=== PATIENT | female | born 1980 | race Caucasian/White ===

== ENCOUNTER → 2020-10-02 11:17 | Outpatient (BNVA) | payer SELFPAY | PROVIDERS: Family Provider Family Medicine; PCP Family Medicine; Visit Provider Nurse Practitioner Family | DX: J06.9 Acute upper respiratory infection, unspecified (principal); R43.0 Anosmia; Z20.828 Contact with and (suspected) exposure to other viral communicable diseases | CPT/HCPCS: 87635 ==

== ENCOUNTER → 2021-04-22 16:11 | Outpatient (BNVA) | payer OTHER, MEDICAID, SELFPAY | PROVIDERS: Family Provider Family Medicine; PCP Family Medicine; Visit Provider Obstetrics & Gynecology | DX: N93.9 Abnormal uterine and vaginal bleeding, unspecified (principal); R87.610 Atypical squamous cells of undetermined significance on cytologic smear of cervix (ASC-US); R87.810 Cervical high risk human papillomavirus (HPV) DNA test positive; Z12.4 Encounter for screening for malignant neoplasm of cervix | CPT/HCPCS: 83001; 84146; 84443; 84702; 85025 ==

== ENCOUNTER → 2021-04-23 10:00 | Outpatient (BNVA) | payer OTHER, MEDICAID, SELFPAY | PROVIDERS: Family Provider Family Medicine; PCP Family Medicine; Visit Provider Obstetrics & Gynecology | DX: N94.10 Unspecified dyspareunia (principal) | CPT/HCPCS: 76830 ==

== ENCOUNTER → 2021-05-09 08:01 | Outpatient (BNVA) | payer OTHER, MEDICAID, SELFPAY | PROVIDERS: Family Provider Family Medicine; PCP Family Medicine; Visit Provider Obstetrics & Gynecology | DX: Z12.4 Encounter for screening for malignant neoplasm of cervix (principal); R87.610 Atypical squamous cells of undetermined significance on cytologic smear of cervix (ASC-US); R87.810 Cervical high risk human papillomavirus (HPV) DNA test positive; N91.4 Secondary oligomenorrhea; N94.10 Unspecified dyspareunia | CPT/HCPCS: 88175; 88305 ==

== ENCOUNTER → 2021-08-04 15:11 | Outpatient (BNVA) | payer OTHER, MEDICAID, SELFPAY | PROVIDERS: Family Provider Family Medicine; PCP Family Medicine; Referring Provider Registered Nurse; Visit Provider Podiatrist Foot & Ankle Surgery | DX: M79.672 Pain in left foot (principal); M20.12 Hallux valgus (acquired), left foot | CPT/HCPCS: 73630 ==

== ENCOUNTER 2022-05-22 14:32 | Emergency (ER) | payer MEDICAID, SELFPAY ==
[2022-05-22 14:38] VITALS: BP 121/89; PULSE 87; RESP 16; TEMP 36.7; O2SAT 98; BMI 29.7
--- NOTE | 2022-05-22 14:45 | ECG_ITS ---
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 Measurements Intervals [place] Rate: 84 P: 53 MA: 117 QRS: 70 QRSD: 94 T: 58 QT: 412 QTc: 488 Interpretive Statements SINUS RHYTHM WITH SHORT MA INTERVAL ST DEVIATION AND MODERATE T-WAVE ABNORMALITY, CONSIDER ANTERIOR ISCHEMIA [-0.1+ mV T WAVE IN V3/V4] No previous ECG available for comparison Electronically Signed On 05-22-2022 20:29:23 CDT by Ronnie Dueñas M.D. [email or web address]/[id number] f
[2022-05-22] MEDS: LORazepam 2 mg Tablet PO (15:07)
--- NOTE | 2022-05-22 16:22 | ED_ITS ---
Documented by User: Grayson Brewer DO 05/25/22 06:37 HPI - Chest Pain General: Chief Complaint: Chest Pain Stated Complaint: c/p possible anxiety Time Seen by Provider: 05/22/22 14:36 Source: patient Mode of arrival: EMS Limitations: no limitations History of Present Illness: 42 yo female present to the ER with comp;alitns of chest pian that began after an argumatn with her boyfriend. pain was rather bried and accompanied by dyspnea. She sttes it is fully resolved now. She had a similar episode yesterday its been on and off since yesterday worsening today. She relates it all to the anxiety and stress from a argument with her Luci boyfriend in ill health that he is experiencing. She does smoke she is not diabetic she has a strong family history of heart disease with a sister at coronary artery issues in her 30s. Her father also had coronary artery issues in his 40s. Patient had a hysterectomy at a young age she is not on any hormone replacement therapy. MD complaint: chest pain Onset (ago): minute(s) Timing of current episode: episodic Prior episodes: No Onset: during rest and other (emotional strain) Pain location: left chest Pain radiation: none Severity: mild Quality: aching and heaviness Relieving factors: nothing Exacerbating factors: nothing Associated symptoms: Reports dyspnea and sense of impending doom; Deny abdominal pain, diaphoresis, fever(s), leg edema, nausea, palpitations, syncope or vomiting Treatment prior to arrival: none Review of Systems Const: Denies: fever(s), chills, fatigue, malaise or diaphoresis ENMT: Denies: throat pain, ear or mastoid pain, nasal discharge or nasal congestion Card: Reports: chest pain; Denies: palpitations, irregular heart rhythm, edema or syncope Resp: Reports: dyspnea; Denies: productive cough or non-productive cough GI: Denies: abdominal pain, nausea or vomiting : Denies: flank pain, difficulty voiding, dysuria, urinary frequency or urinary urgency Musc: Denies: neck pain or back pain Skin/Breast: Denies: rash or pruritus PFSH ED PFSH: Surgical History History of bilateral tubal ligation History of tonsillectomy Family History Father Heart disease Family/Other Diabetes Maternal aunt Breast cancer maternal aunt, 40's Grandmother Uterine cancer maternal, states she had cancer all done there , 50's Ovarian cancer maternal, 50's Denies family history of Colon cancer Clotting disorder Hyperlipidemia Anesthesia complication Bleeding disorder Hypertension Thyroid condition Stroke Social History Smoking and tobacco status: current every day smoker cigarettes Packs smoked per day: 2 Alcohol intake: current Alcohol intake frequency: holidays/special occasions only Alcohol type: hard liquor Female Reproductive History: Para: 3 Spontaneous abortions: Yes (1) Physical Exam Const: GENERAL APPEARANCE: cooperative and comfortable ORIENTATION/CONSCIOUSNESS: Yes awake, Yes oriented to person, Yes oriented to place and Yes oriented to time HENMT: COMMON NORMALS: normocephalic, atraumatic and hearing grossly normal bilaterally HEAD & SCALP: normocephalic and atraumatic Neck/C-Spine: COMMON NORMALS: no JVD Resp: COMMON NORMALS: normal respiratory effort, No retractions, No use of accessory muscles and clear to auscultation bilaterally AUSCULTATION: clear to auscultation bilaterally Cardio: COMMON NORMALS: no JVD, regular rate, regular rhythm and No murmurs present (Cardio) RATE: regular rate RHYTHM: regular rhythm GI: COMMON NORMALS: Soft to palpation and No hepatosplenomegaly present AUSCULTATION: Yes normoactive bowel sounds PALPATION: Yes Soft to palpation, No Tenderness to palpation present (GI), No Guarding due to palpation present (GI) and Yes No hepatosplenomegaly present Extremity: COMMON NORMALS: normal to inspection, capillary refill normal, no clubbing, cyanosis or edema, no calf tenderness and no pedal edema Neuro: SENSORIUM/ORIENTATION: Yes oriented to person, Yes oriented to place and Yes oriented to time Skin: COMMON NORMALS: no rashes or lesions noted GENERAL SKIN EXAM: no rashes or lesions noted Course Vital Signs: Vital signs: Vital Signs Temperature 98.1 F 05/22/22 14:38 Pulse Rate 65 05/22/22 18:20 Respiratory Rate 15 05/22/22 18:20 Blood Pressure 121/89 05/22/22 18:20 Pulse Oximetry 95 05/22/22 18:20 MDM - Chest Pain Medical Decision Making Patient has risk factors particularly she has siblings who have had coronary artery disease including a sister who had coronary artery disease in her 30s. Female Yosvany are pending. Care signed out to Dr. Rios at change of shift. See final notes for diagnosis and disposition. Patient presents here with chest pains atypical in nature. Patient's heart enzymes here are normal she has no signs of acute coronary syndrome. Patient is stable for discharge she is to follow-up PCP and return if worsening. Medical Records I reviewed the patient's medical records. Lab Data I reviewed the patient's lab results. : 05/22/22 17:55 05/22/22 17:55 Radiology Impressions Chest X-Ray 05/22/22 16:50 IMPRESSION: No acute cardiopulmonary abnormality. Laboratory Results WBC 9.9 10^3/uL (4.0-10.0) 05/22/22 17:55 RBC 5.10 10^6/uL (4.1-5.3) 05/22/22 17:55 Hgb 12.0 g/dL (11.5-15.3) 05/22/22 17:55 Hct 39.1 % (37.0-47.0) 05/22/22 17:55 MCV 76.7 fl (81-99) L 05/22/22 17:55 MCH 23.5 pg (28.0-34.0) L 05/22/22 17:55 MCHC 30.7 g/dL (30.0-36.0) 05/22/22 17:55 RDW 14.2 % (12.1-15.1) 05/22/22 17:55 Plt Count 494 10^3/cmm (130-400) H 05/22/22 17:55 MPV 10.1 fL (7.4-10.4) 05/22/22 17:55 Neut % (Auto) 69.0 % 05/22/22 17:55 Lymph % (Auto) 23.2 % 05/22/22 17:55 [place] % (Auto) 5.0 % 05/22/22 17:55 Eos % (Auto) 1.9 % 05/22/22 17:55 Baso % (Auto) 0.7 % 05/22/22 17:55 Neut # (Auto) 6.81 10^3/uL (1.8-7.7) 05/22/22 17:55 Lymph # (Auto) 2.3 10^3/uL (0.8-4.8) 05/22/22 17:55 [place] # (Auto) 0.5 10^3/uL (0.2-0.9) 05/22/22 17:55 Eos # (Auto) 0.2 10^3/uL (0.0-0.8) 05/22/22 17:55 Baso # (Auto) 0.1 10^3/uL (0.0-0.1) 05/22/22 17:55 Nucleated RBC % (auto) 0 % 05/22/22 17:55 Nucleated RBCs # 0.0 /100WBC 05/22/22 17:55 Sodium 137 mmol/L (136-145) 05/22/22 17:55 Potassium 3.5 mmol/L (3.5-5.1) 05/22/22 17:55 Chloride 100 mmol/L (98-107) 05/22/22 17:55 Carbon Dioxide 23 mmol/L (22-29) 05/22/22 17:55 Anion Gap 17.5 (5-19) 05/22/22 17:55 BUN 10 mg/dL (6-20) 05/22/22 17:55 Creatinine 0.6 mg/dL (0.5-0.9) 05/22/22 17:55 GFR Calculation 109.1 mL/min (90-130) 05/22/22 17:55 Glucose 103 mg/dL (65-115) 05/22/22 17:55 Calculated Osmolality 283 mOsm/kg (285-295) L 05/22/22 17:55 Calcium 9.3 mg/dL (8.5-10.5) 05/22/22 17:55 Total Bilirubin 0.6 mg/dL (0.15-1.2) 05/22/22 17:55 AST 19 U/L (0-32) 05/22/22 17:55 ALT 23 U/L (0-33) 05/22/22 17:55 Alkaline Phosphatase 102 IU/L (35-105) 05/22/22 17:55 Troponin T Baseline 6 ng/L (0-10) 05/22/22 16:00 Troponin T 120 Minute 6.40 ng/L (0-10) 05/22/22 17:55 Delta Troponin T 0.40 ABS# (0-10) 05/22/22 17:55 Total Protein 6.5 g/dL (6.6-8.7) L 05/22/22 17:55 Albumin 4.2 g/dL (3.5-5.2) 05/22/22 17:55 Globulin 2.3 g/dL (1.3-4.6) 05/22/22 17:55 Discharge Plan Discharge Patient Disposition: Home Clinical Impression: Chest pain Condition: Stable Prescriptions: No Action pseudoephedrine HCl [Sudafed] 30 mg tablet 30 mg PO DAILY 0RF cetirizine 10 mg tablet 10 mg PO ONCE 0RF tizanidine 2 mg tablet 2 mg PO DAILY 0RF loratadine 10 mg tablet 10 mg PO DAILY 0RF amoxicillin-pot clavulanate 875-125 mg tablet 1 tab PO BID 0RF Tylenol Extra Strength 500 mg Capsule 500 mg PO Q6H PRN (Reason: Pain) 0RF Discharge Orders: Discharge ED (Routine); Ordered 05/22/22 Ordered By: Varinder Rios Referrals: Tootie Garcia DO [Primary Care Provider] - 1-3 days Discharge Diet: Advance as tolerated Discharge Activity: Resume usual activity Patient Instructions: Chest Pain (ED) Coding Level of Care Code ED Personnel Clerks Supervisor for Chg Fwd Exam Comprehensive Documented by User: Varinder Rios MD 05/22/22 19:05 HPI - Chest Pain General: Chief Complaint: Chest Pain Stated Complaint: c/p possible anxiety Time Seen by Provider: 05/22/22 14:36 [facility] ED PFSH: Surgical History History of bilateral tubal ligation History of tonsillectomy Family History Father Heart disease Family/Other Diabetes Maternal aunt Breast cancer maternal aunt, 40's Grandmother Uterine cancer maternal, states she had cancer all done there , 50's Ovarian cancer maternal, 50's Denies family history of Colon cancer Clotting disorder Hyperlipidemia Anesthesia complication Bleeding disorder Hypertension Thyroid condition Stroke Social History Smoking and tobacco status: current every day smoker cigarettes Packs smoked per day: 2 Alcohol intake: current Alcohol intake frequency: holidays/special occasions only Alcohol type: hard liquor Course Vital Signs: Vital signs: Vital Signs Temperature 98.1 F 05/22/22 14:38 Pulse Rate 65 05/22/22 18:20 Respiratory Rate 15 05/22/22 18:20 Blood Pressure 121/89 05/22/22 18:20 Pulse Oximetry 95 05/22/22 18:20 MDM - Chest Pain Medical Decision Making Patient presents here with chest pains atypical in nature. Patient's heart enzymes here are normal she has no signs of acute coronary syndrome. Patient is stable for discharge she is to follow-up PCP and return if worsening. Lab Data : 05/22/22 17:55 05/22/22 17:55 Radiology Impressions Chest X-Ray 05/22/22 16:50 IMPRESSION: No acute cardiopulmonary abnormality. Laboratory Results WBC 9.9 10^3/uL (4.0-10.0) 05/22/22 17:55 RBC 5.10 10^6/uL (4.1-5.3) 05/22/22 17:55 Hgb 12.0 g/dL (11.5-15.3) 05/22/22 17:55 Hct 39.1 % (37.0-47.0) 05/22/22 17:55 MCV 76.7 fl (81-99) L 05/22/22 17:55 MCH 23.5 pg (28.0-34.0) L 05/22/22 17:55 MCHC 30.7 g/dL (30.0-36.0) 05/22/22 17:55 RDW 14.2 % (12.1-15.1) 05/22/22 17:55 Plt Count 494 10^3/cmm (130-400) H 05/22/22 17:55 MPV 10.1 fL (7.4-10.4) 05/22/22 17:55 Neut % (Auto) 69.0 % 05/22/22 17:55 Lymph % (Auto) 23.2 % 05/22/22 17:55 [place] % (Auto) 5.0 % 05/22/22 17:55 Eos % (Auto) 1.9 % 05/22/22 17:55 Baso % (Auto) 0.7 % 05/22/22 17:55 Neut # (Auto) 6.81 10^3/uL (1.8-7.7) 05/22/22 17:55 Lymph # (Auto) 2.3 10^3/uL (0.8-4.8) 05/22/22 17:55 [place] # (Auto) 0.5 10^3/uL (0.2-0.9) 05/22/22 17:55 Eos # (Auto) 0.2 10^3/uL (0.0-0.8) 05/22/22 17:55 Baso # (Auto) 0.1 10^3/uL (0.0-0.1) 05/22/22 17:55 Nucleated RBC % (auto) 0 % 05/22/22 17:55 Nucleated RBCs # 0.0 /100WBC 05/22/22 17:55 Sodium 137 mmol/L (136-145) 05/22/22 17:55 Potassium 3.5 mmol/L (3.5-5.1) 05/22/22 17:55 Chloride 100 mmol/L (98-107) 05/22/22 17:55 Carbon Dioxide 23 mmol/L (22-29) 05/22/22 17:55 Anion Gap 17.5 (5-19) 05/22/22 17:55 BUN 10 mg/dL (6-20) 05/22/22 17:55 Creatinine 0.6 mg/dL (0.5-0.9) 05/22/22 17:55 GFR Calculation 109.1 mL/min (90-130) 05/22/22 17:55 Glucose 103 mg/dL (65-115) 05/22/22 17:55 Calculated Osmolality 283 mOsm/kg (285-295) L 05/22/22 17:55 Calcium 9.3 mg/dL (8.5-10.5) 05/22/22 17:55 Total Bilirubin 0.6 mg/dL (0.15-1.2) 05/22/22 17:55 AST 19 U/L (0-32) 05/22/22 17:55 ALT 23 U/L (0-33) 05/22/22 17:55 Alkaline Phosphatase 102 IU/L (35-105) 05/22/22 17:55 Troponin T Baseline 6 ng/L (0-10) 05/22/22 16:00 Troponin T 120 Minute 6.40 ng/L (0-10) 05/22/22 17:55 Delta Troponin T 0.40 ABS# (0-10) 05/22/22 17:55 Total Protein 6.5 g/dL (6.6-8.7) L 05/22/22 17:55 Albumin 4.2 g/dL (3.5-5.2) 05/22/22 17:55 Globulin 2.3 g/dL (1.3-4.6) 05/22/22 17:55 Discharge Plan Discharge Patient Disposition: Home Clinical Impression: Chest pain Condition: Stable Prescriptions: No Action pseudoephedrine HCl [Sudafed] 30 mg tablet 30 mg PO DAILY 0RF cetirizine 10 mg tablet 10 mg PO ONCE 0RF tizanidine 2 mg tablet 2 mg PO DAILY 0RF loratadine 10 mg tablet 10 mg PO DAILY 0RF amoxicillin-pot clavulanate 875-125 mg tablet 1 tab PO BID 0RF Tylenol Extra Strength 500 mg Capsule 500 mg PO Q6H PRN (Reason: Pain) 0RF Discharge Orders: Discharge ED (Routine); Ordered 05/22/22 Ordered By: Varinder Rios Referrals: Tootie Garcia DO [Primary Care Provider] - 1-3 days Discharge Diet: Advance as tolerated Discharge Activity: Resume usual activity Patient Instructions: Chest Pain (ED) Coding Level of Care Code ED Personnel Clerks Supervisor for Mariog Fwd Exam Comprehensive
--- NOTE | 2022-05-22 16:45 | ECG_ITS ---
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 Measurements Intervals [place] Rate: 84 P: 52 PA: 119 QRS: 63 QRSD: 89 T: 44 QT: 403 QTc: 479 Interpretive Statements SINUS RHYTHM WITH SHORT PA INTERVAL NONSPECIFIC ST & T-WAVE ABNORMALITY Compared to ECG 05/22/2022 14:39:53 Possible ischemia no longer present T-wave abnormality still present Electronically Signed On 05-22-2022 20:31:16 CDT by Ronnie Dueñas M.D. [email or web address]/[id number] f
[2022-05-22 16:48] LABS: Troponin(5th) Baseline 6 ng/L (0-10)
--- NOTE | 2022-05-22 16:50 | XRR_ITS ---
PROCEDURE INFORMATION: Exam: XR Chest Exam date and time: 05/22/2022 4:55 PM Age: 42 years old Clinical indication: Cough and dyspnea; Additional info: Dyspnea/cough TECHNIQUE: Imaging protocol: Radiologic exam of the chest. Views: 1 view. COMPARISON: No relevant prior studies available. FINDINGS: Lungs: The lungs are clear. Pleural spaces: Unremarkable. No pleural effusion. No pneumothorax. Heart/Mediastinum: Unremarkable. No cardiomegaly. Bones/joints: Unremarkable. XR/XR chest 1V portable [id number] IMPRESSION: No acute cardiopulmonary abnormality.
[2022-05-22 18:05] LABS: Basophils # 0.1 10^3/uL (0.0-0.1); Basophils % 0.7 %; Eosinophils # 0.2 10^3/uL (0.0-0.8); Eosinophils % 1.9 %; Hematocrit 39.1 % (37.0-47.0); Lymphocytes # 2.3 10^3/uL (0.8-4.8); Lymphocytes % 23.2 %; Mean Corpuscular HGB Conc 30.7 g/dL (30.0-36.0); Mean Corpuscular Hemoglobin 23.5 pg (28.0-34.0); Mean Corpuscular Volume 76.7 fl (81-99); Mean Platelet Volume 10.1 fL (7.4-10.4); Monocytes # 0.5 10^3/uL (0.2-0.9); Neutrophils # 6.81 10^3/uL (1.8-7.7); Nucleated Red Blood Cells % 0 %; Platelet Count 494 10^3/cmm (130-400); Red Cell Distribution Width 14.2 % (12.1-15.1); White Blood Count 9.9 10^3/uL (4.0-10.0)
[2022-05-22 18:20] VITALS: BP 121/89; PULSE 65; RESP 15; O2SAT 95
[2022-05-22 18:35] LABS: Alanine Aminotransferase 23 U/L (0-33); Albumin Level 4.2 g/dL (3.5-5.2); Alkaline Phosphatase 102 IU/L (35-105); Anion Gap 17.5 (5-19); Aspartate Amino Transferase 19 U/L (0-32); Blood Urea Nitrogen 10 mg/dL (6-20); Calcium 9.3 mg/dL (8.5-10.5); Carbon Dioxide 23 mmol/L (22-29); Chloride 100 mmol/L (98-107); Globulin 2.3 g/dL (1.3-4.6); Glomerular Filtration Rate 109.1 mL/min (90-130); Glucose 103 mg/dL (65-115); Osmolality Calculated 283 mOsm/kg (285-295); Potassium 3.5 mmol/L (3.5-5.1); Sodium 137 mmol/L (136-145); Total Bilirubin 0.6 mg/dL (0.15-1.2); Total Protein 6.5 g/dL (6.6-8.7)
== END 2022-05-22 19:18 | disposition home or self-care (01) ==
PROVIDERS: Family Medicine; Emergency Provider Emergency Medicine; PCP Family Medicine
DX: R07.9 Chest pain, unspecified (principal); F17.210 Nicotine dependence, cigarettes, uncomplicated
CPT/HCPCS: 71045; 80053; 84484; 85025; 93005; 99285

== ENCOUNTER → 2024-04-14 08:48 | Outpatient (BNVA) | payer MEDICAID, SELFPAY | PROVIDERS: PCP Family Medicine; Visit Provider Obstetrics & Gynecology | DX: Z12.4 Encounter for screening for malignant neoplasm of cervix (principal) | CPT/HCPCS: 87624 ==

== ENCOUNTER → 2024-05-08 07:58 | Outpatient (BNVA) | payer MEDICAID, SELFPAY | PROVIDERS: PCP Family Medicine; Visit Provider Obstetrics & Gynecology | DX: R10.2 Pelvic and perineal pain (principal); N83.291 Other ovarian cyst, right side | CPT/HCPCS: 76830 ==

== ENCOUNTER 2025-02-22 14:12 | Inpatient (IN) | payer MEDICAID, SELFPAY ==
[2025-02-22 14:13] VITALS: BP 166/111; PULSE 98; RESP 22; TEMP 36.7; O2SAT 99; BMI 26.5
--- NOTE | 2025-02-22 14:18 | ECG_ITS ---
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 Measurements Intervals [place] Rate: 104 P: 68 DC: 126 QRS: 56 QRSD: 78 T: 1 QT: 342 QTc: 451 Interpretive Statements SINUS TACHYCARDIA POSSIBLE LEFT ATRIAL ENLARGEMENT [-0.1mV P-WAVE IN V1/V2] NONSPECIFIC ST & T-WAVE ABNORMALITY ABNORMAL RHYTHM ECG Compared to ECG 05/22/2022 17:00:59 Sinus rhythm no longer present Short DC interval no longer present T-wave abnormality still present Electronically Signed On 02-23-2025 10:35:47 CDT by Reggie Perez M.D. [id number]
--- NOTE | 2025-02-22 14:21 | ED_ITS ---
HPI - Anxiety 2 General: Chief Complaint: Anxiety Stated Complaint: mhe Time Seen by Provider: 02/22/25 14:18 History of Present Illness: 44-year-old woman who presents the emerg ency room with anxiety and depression symptoms. On presentation here she appears somewhat manic and is talking with pressured speech. She says she was sent over for an evaluation. She says she is not homicidal or not suicidal that her and her son are just both depressed. She gone to [facility] [place] for an evaluation and they told her if she came here she would be evaluated by a psychiatrist. However affidavits were sent in apparently she had been sent for admission as they were concerned for her wellbeing and wellbeing of others. She had made statements about how she did not want to be here on earth but she would not kill her self because of her kids. But then she went on to say that she would kill a man. She would not be specific about who. Related Data Home Medications ?Medication ?Instructions ?Recorded ?Confirmed acetaminophen 500 mg capsule 500 mg PO Q6H PRN Pain 02/22/25 Allergies Allergy/AdvReac Type Severity Reaction Status Date / Time No Known Allergies Allergy Verified 04/14/24 07:29 Review of Systems 2 Narrative: Constitutional symptoms: Negative except as documented in HPI. Skin symptoms: Negative except as documented in HPI. Eye symptoms: Negative except as documented in HPI. ENMT symptoms: Negative except as documented in HPI. Respiratory symptoms: Negative except as documented in HPI. Cardiovascular symptoms: Negative except as documented in HPI. Gastrointestinal symptoms: Negative except as documented in HPI. Genitourinary symptoms: Negative except as documented in HPI. Musculoskeletal symptoms: Negative except as documented in HPI. Neurologic symptoms: Negative except as documented in HPI. Psychiatric symptoms: Negative except as documented in HPI. Endocrine symptoms: Negative except as documented in HPI. PFSH ED 2 PFSH: Surgical History History of bilateral tubal ligation History of tonsillectomy Family History Father Heart disease Family/Other Diabetes Maternal aunt Breast cancer maternal aunt, 40's Grandmother Uterine cancer maternal, states she had cancer all done there , 50's Ovarian cancer maternal, 50's Denies family history of Colon cancer Clotting disorder Hyperlipidemia Anesthesia complication Bleeding disorder Hypertension Thyroid condition Stroke Social History Smoking and tobacco/nicotine status: current every day tobacco/nicotine user cigarettes Packs smoked per day: 2 Alcohol intake: current Alcohol intake frequency: holidays/special occasions only Alcohol type: hard liquor Substance/Drug Use: current Substance/Drug use frequency: daily Female Reproductive History: Para: 3 Spontaneous abortions: Yes (1) Physical Exam 2 Narrative: EXAM NARRATIVE: General: Alert. no acute distress Skin: Warm, dry Head: Normocephalic, atraumatic. Neck: Supple, trachea midline. Eye: Extraocular movements are intact. Ears, nose, mouth and throat: Oral mucosa moist. Cardiovascular: Regular rate and rhythm, Normal peripheral perfusion. Respiratory: Lungs are clear to auscultation, respirations are non-labored, breath sounds are equal, Symmetrical chest wall expansion. Gastrointestinal: Soft, Nontender, Non distended, Normal bowel sounds. Musculoskeletal: Normal ROM, no deformity. Neurological: Not Alert and oriented to person, place, time, and situation, No focal neurological deficit observed. Psychiatric: Pressured speech. Manic appearing. Currently denies suicidal or homicidal ideation Course 2 Vital Signs: Vital signs: Vital Signs Temperature 98.0 F 02/22/25 14:13 Pulse Rate 98 02/22/25 14:13 Respiratory Rate 22 H 02/22/25 14:13 Blood Pressure 166/111 02/22/25 14:13 Pulse Oximetry 99 02/22/25 14:13 Oxygen Delivery Me thod Room Air 02/22/25 14:13 MDM - Anxiety Medical Decision Making Differential diagnosis: Patient with reported homicidal thoughts and manic type behavior concerns for infection, alcohol intoxication, cardiac issues or other medical problems prior to psychiatric admission. Workup: labwork, ekg ordered to evaluate the pathologies and to clear the patient medically prior to psychiatric admission EKG: Time 1434. Rate 104. Sinus tachycardia, No ST-T changes, no ectopy, normal UT & QRS intervals, This was reviewed and interpreted by myself the ER physician at 1438. Lab Review: Laboratory results were reviewed and interpreted by myself the emergency room physician. - Medically cleared. - EKG shows no ischemic changes. - Blood alcohol level is negative, -Tylenol and salicylate levels are negative. - No anemia. - BUN and creatinine are within normal limits. Drug screen and urinalysis pending at time of admission. Consultation: I spoke with Dr. Ragland who feels the patient does need to be placed on 96-hour hold admitted. He is excepting the patient to the Neuropsych Unit. Assessment and plan: Homicidal ideations Depression Anxiety ? Patient became quite agitated when she was told she had to stay. Ativan and Geodon administered. -Admission to neuropsychiatric unit for continued evaluation and treatment. - All lab work was reviewed and interpreted personally by myself, the ER physician - Evaluation and treatment of this problem were appropriate in the emergency setting Lab Data 02/22/25 15:51 02/22/25 15:51 Laboratory Results WBC 10.97 10^3/uL (3.29-11.43) 02/22/25 15:51 RBC 5.35 10^6/uL (3.85-5.65) 02/22/25 15:51 Hgb 13.70 g/dL (11.27-16.99) 02/22/25 15:51 Hct 44.4 % (36-47) 02/22/25 15:51 MCV 83.0 fl (85-98) L 02/22/25 15:51 MCH 25.6 pg (27-33) L 02/22/25 15:51 MCHC 30.9 g/dL (30-55) 02/22/25 15:51 RDW 14.1 % (12.1-15.1) 02/22/25 15:51 Plt Count 432 10^3/cmm (157-399) H 02/22/25 15:51 MPV 8.8 fL (7.4-10.4) 02/22/25 15:51 Neut % (Auto) 64.1 % 02/22/25 15:51 Lymph % (Auto) 27.8 % 02/22/25 15:51 [place] % (Auto) 5.7 % 02/22/25 15:51 Eos % (Auto) 1.5 % 02/22/25 15:51 Baso % (Auto) 0.6 % 02/22/25 15:51 Neut # (Auto) 7.03 10^3/uL (1.8-7.7) 02/22/25 15:51 Lymph # (Auto) 3.1 10^3/uL (0.8-4.8) 02/22/25 15:51 [place] # (Auto) 0.6 10^3/uL (0.2-0.9) 02/22/25 15:51 Eos # (Auto) 0.2 10^3/uL (0.0-0.8) 02/22/25 15:51 Baso # (Auto) 0.1 10^3/uL (0.0-0.1) 02/22/25 15:51 Nucleated RBC % (auto) 0 % 02/22/25 15:51 Nucleated RBCs # 0.0 /100WBC 02/22/25 15:51 Sodium 134 mmol/L (136-145) L 02/22/25 15:51 Potassium 3.6 mmol/L (3.5-5.1) 02/22/25 15:51 Chloride 100 mmol/L (98-107) 02/22/25 15:51 Carbon Dioxide 21 mmol/L (22-29) L 02/22/25 15:51 Anion Gap 16.6 (5-19) 02/22/25 15:51 BUN 6 mg/dL (6-20) 02/22/25 15:51 Creatinine 0.7 mg/dL (0.5-0.9) 02/22/25 15:51 GFR Calculation 90.5 mL/min (90-130) 02/22/25 15:51 Glucose 121 mg/dL (65-115) H 02/22/25 15:51 Calculated Osmolality 277 mOsm/kg (285-295) L 02/22/25 15:51 Calcium 9.4 mg/dL (8.5-10.5) 02/22/25 15:51 Total Bilirubin 0.5 mg/dL (0.15-1.2) 02/22/25 15:51 AST 18 U/L (0-32) 02/22/25 15:51 ALT 13 U/L (0-33) 02/22/25 15:51 Alkaline Phosphatase 113 U/L (35-105) H 02/22/25 15:51 Total Protein 7.2 g/dL (6.6-8.7) 02/22/25 15:51 Albumin 4.1 g/dL (3.5-5.2) 02/22/25 15:51 Globulin 3.1 g/dL (1.3-4.6) 02/22/25 15:51 TSH 0.71 uIU/mL (0.27-4.20) 02/22/25 15:51 Salicylates < 0.3 mg/dL (3-10) L 02/22/25 15:51 Acetaminophen < 5.0 ug/mL (10-30) L 02/22/25 15:51 Ethyl Alcohol < 10 mg/dL (0-10) 02/22/25 15:51 No radiology studies performed this visit Discharge Plan Discharge Patient Disposition: Admitted As Inpatient Clinical Impression: Acute anxiety, Depression, Homicidal ideations Condition: Stable Discharge Diet: Usual diet Discharge Activity: Increase activity as tolerated Coding Level of Care Code ED Lab Animal Technologist for Jazmín Ferrera
[2025-02-22 15:58] LABS: Basophils # 0.1 10^3/uL (0.0-0.1); Basophils % 0.6 %; Eosinophils # 0.2 10^3/uL (0.0-0.8); Eosinophils % 1.5 %; Hematocrit 44.4 % (36-47); Lymphocytes # 3.1 10^3/uL (0.8-4.8); Lymphocytes % 27.8 %; Mean Corpuscular HGB Conc 30.9 g/dL (30-55); Mean Corpuscular Hemoglobin 25.6 pg (27-33); Mean Platelet Volume 8.8 fL (7.4-10.4); Monocytes # 0.6 10^3/uL (0.2-0.9); Monocytes % 5.7 %; Neutrophils # 7.03 10^3/uL (1.8-7.7); Neutrophils % 64.1 %; Nucleated Red Blood Cells % 0 %; Platelet Count 432 10^3/cmm (157-399); Red Blood Count 5.35 10^6/uL (3.85-5.65); Red Cell Distribution Width 14.1 % (12.1-15.1); White Blood Count 10.97 10^3/uL (3.29-11.43)
--- NOTE | 2025-02-22 16:04 | PC.NURSE ---
96 hour hold rights read and reviewed with patient. Patient stated I am very upset that you all put me on a hold. I went to [facility] for help and now i am put on a hold? I cant stay here. I have no one to get my kids from school. I am going to lose my house, my job, and my kids. This nurse did explain the 96 hour hold to patient and instructed patient that we will make sure the patients children are safe. Copy of rights given to patient.
--- NOTE | 2025-02-22 16:06 | PC.NURSE ---
MOTHER, RYAN, CALLED AND WANTED TO SPEAK WITH PATIENT. PATIENT GAVE VERBAL CONSENT TO SPEAK TO MOTHER. MOTHER STATES THAT PATIENT CHILDREN ARE WITH ELIESER HER BOYFRIEND'S DAUGHTER.
--- NOTE | 2025-02-22 16:16 | PC.NURSE ---
PT CONCERNED THAT HER CHILDREN WOULD NOT HAVE ANYONE TO PICK THEM UP FROM SCHOOL TODAY. PATIENT GAVE VERBAL CONSENT TO CALL THE SCHOOL TO BE PUT ON THE BUS AND BE DROPPED OFF WITH AUNT ELIESER. THIS NURSE CONTACTED [facility], [facility] VERBALIZED UNDERSTANDING. MOTHER OF PATIENT CALLED, VERBALIZED THAT CHILDREN WERE WITH ELIESER. PATIENT MADE AWARE.
[2025-02-22 16:25] LABS: Acetaminophen < 5.0 ug/mL (10-30); Alanine Aminotransferase 13 U/L (0-33); Albumin Level 4.1 g/dL (3.5-5.2); Alcohol Level < 10 mg/dL (0-10); Alkaline Phosphatase 113 U/L (35-105); Anion Gap 16.6 (5-19); Aspartate Amino Transferase 18 U/L (0-32); Blood Urea Nitrogen 6 mg/dL (6-20); Calcium 9.4 mg/dL (8.5-10.5); Carbon Dioxide 21 mmol/L (22-29); Chloride 100 mmol/L (98-107); Globulin 3.1 g/dL (1.3-4.6); Glomerular Filtration Rate 90.5 mL/min (90-130); Glucose 121 mg/dL (65-115); Osmolality Calculated 277 mOsm/kg (285-295); Potassium 3.6 mmol/L (3.5-5.1); Salicylate < 0.3 mg/dL (3-10); Sodium 134 mmol/L (136-145); Thyroid Stimulating Hormone 0.71 uIU/mL (0.27-4.20); Total Bilirubin 0.5 mg/dL (0.15-1.2); Total Protein 7.2 g/dL (6.6-8.7)
[2025-02-22 17:05] LABS: Bilirubin Urine Negative (Negative); Blood Urine Negative (Negative); Glucose Urine UA Negative (Normal); Ketones Urine Negative (Negative); Leukocyte Esterase Urine Negative (Negative); Nitrate Urine Negative (Negative); Protein Urine Negative (Negative); Specific Gravity, Urine 1.009 (1.005-1.030); Urine Appearance Clear (CLEAR); Urine Color Yellow (Yellow); Urobilinogen Urine 0.2 mg/dL (Negative); pH Urine 6.5 (5-7)
[2025-02-22 17:09] LABS: Add Urine Microscopic? YES; Bacteria Urine Trace /hpf; Hyaline Casts Urine 0-4 /lpf; RBC Urine 0-2 /hpf (0-2)
[2025-02-22 17:15] LABS: Amphetamines Screen Urine Positive (Negative); Barbiturates Screen Urine Negative (Negative); Benzodiazepines Screen Urine Negative (Negative); Cocaine Screen Urine Negative (Negative); Opiate Screen Urine Negative (Negative); PCP Screen Urine Negative (Negative); THC Screen Urine Positive (Negative)
[2025-02-22 17:20] LABS: Add Urine Culture? No
[2025-02-22 18:15] VITALS: BP 153/98; PULSE 91; O2SAT 99
[2025-02-22 18:24] VITALS: BP 176/99; PULSE 97; TEMP 36.4; O2SAT 99
--- NOTE | 2025-02-22 19:34 | PC.ADMIT ---
[address] Admission Note:Pt states that she went to [facility] to see if she could get some help because she is having some struggles right now. She states that she was talking with a lady a made a comment about wanting to stab someone in the face when she gets upset. She states that she was not literall about it at all and there was no one person she even wanted to harm. She states that she is even more stressed now because she was unable to pick her children up and she is supposed to be at work at 1030 in the morning and she is really in need of those hours. She does become tearful at times while talking. States that she just has a lot going on and is feeling pretty stressed, but this isn't what she wanted. Pt was positive for THC and Amphetamines in ER. Pt admits to daily THC use, but did not admit to the amphetamine. BP are elevated since arriving to the unit. Pt does report having alpha gal. Pt was coming out of supervised use of bathroom when she handed me a vape. As we dressed pt out and had her remove bra another vape fell out. She willing handed these over with no issues. Reminded pt that we do have nicotine supplements. She verbalized understanding. She is more calm and cooperative and is trying to be positive as she waits to see the provider. The patient,Radha Serrato,44 y/o, was given written information regarding hospital policies, unit procedures and contact persons. Patient's smoking status: current every day smoker. Vital Signs - 8 hr 02/22/25 14:13 02/22/25 18:15 02/22/25 18:24 Temperature 98.0 F 97.5 F L Pulse Rate 98 91 97 Respiratory Rate 22 H Blood Pressure 166/111 153/98 176/99 Pulse Oximetry 99 99 99 Oxygen Delivery Method Room Air Room Air 02/22/25 18:26 Temperature Pulse Rate Respiratory Rate Blood Pressure Pulse Oximetry Oxygen Delivery Method Room Air
[2025-02-22 20:03] VITALS: BP 132/76; PULSE 91; RESP 16; TEMP 36.7; O2SAT 98
[2025-02-23] MEDS: nicotine 4 mg lozenge MUCOUS MEM ×8 (03:27→22:34)
[2025-02-23 06:00] VITALS: BP 141/89; PULSE 95; RESP 16; TEMP 37.1; O2SAT 95
[2025-02-23 14:00] VITALS: BP 155/102; PULSE 88; RESP 18; TEMP 36.6; O2SAT 97
--- NOTE | 2025-02-23 14:15 | PC.OT ---
ATTEMPTED OT EVALUATION AT 10:56 WITH PT DECLINING; WILL ATTEMPT AGAIN AT LATER TIME.
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
[2025-02-23 20:21] VITALS: BP 149/82; PULSE 79; RESP 17; TEMP 36.7; O2SAT 99
[2025-02-23] MEDS: hyDROXYzine 25 mg Capsule 50 MG PO (20:41)
[2025-02-23] MEDS: trazodone 50 mg Tablet PO (20:41)
[2025-02-24 06:00] VITALS: BP 124/86; PULSE 78; RESP 16; TEMP 37.1; O2SAT 96
[2025-02-24] MEDS: nicotine 4 mg lozenge MUCOUS MEM ×7 (09:00→22:33)
--- NOTE | 2025-02-24 13:17 | P.NPUPN_ITS ---
Subjective NPU 2 Subjective: Patient presented today reporting that she is doing fine. She reports to being hearing away from her kids is difficult and she is wanting to get home sooner rather than later. We continued to discuss concerns about the behaviors she had leading to the hospitalization and we had a long discussion about things that she may have said in her tendency to speak very openly about things in a way that can come across offputting and concerning. She continued to report a desire to not be on medication. Mental Status Exam 2 MSE Comments: This a well-nourished, well-developed white female in hospital scrubs with limited hygiene/grooming but appropriate eye contact. Absent dentition. No abnormal movements except for mild psychomotor agitation. Mostly cooperative with exam and in mild distress. Speech was slightly increased rate and volume. Mood described as feeling significantly better, affect congruent and less irritable. Thought process organized. Thought content: Patient denied suicidality on admission had endorsed homicidal ideation, there were no delusions reported noted. No auditory or visual hallucinations reported. Stressors include a misunderstanding with a lady, which led to being in the hospital. Additionally, the patient's son got in trouble for missing school, and the school suggested [facility] Counseling ([facility]) Attention and concentration are mostly intact and memory is appearing mostly reliable but none were formally tested. She is alert and oriented ?3. Insight, judgment and impulse control are impaired. Vitals/I&O/Wt Last Vital Signs Temp 98.8 F 02/24/25 06:00 Pulse 78 02/24/25 06:00 Resp 16 02/24/25 06:00 BP 124/86 02/24/25 06:00 Pulse Ox 96 02/24/25 06:00 O2 Del Method Room Air 02/24/25 06:00 Weight last 48 hrs Weight 68.039 kg Data NPU 02/22/25 15:51 02/22/25 15:51 A&P Assessment and plan (1) Acute anxiety: (2) Depression: (3) Homicidal ideations: (4) Methamphetamine use disorder, moderate: (5) Cannabis use disorder, severe, dependence: Plan This is a 44-year-old white female who presented to the crisis and endorsed homicidal ideation there and was sent to the emergency department for further evaluation with a UDS positive for cannabis and amphetamines denying issues with amphetamines reporting that she is just needing to get connected with services for her and her son. 1. Continue current medications. 2. Encouraged sober living treatment after discharge at the highest level care to which she is willing to commit. 3. Recommend follow-up for mental health services. 4. Encourage individual, group and milieu therapy. 5. Continue every 15 minute checks for safety. 6. Evaluate against the backdrop of a 96-hour hold. PDMP PDMP Reviewed: Not Reviewed Involuntary Hold Information 2 Hold Status: Legal Status: 96 Hour Hold Date/Time Hold Expires: 02/28/25 @1440 Attestations NPU 2 Medical Necessity Statement*: Inpatient hospitalization is medically necessary and the clinically appropriate intervention at this time. We will initiate/monitor medications and make changes as indicated. Likely length of stay 1-3 days. Coding Level of Care Code Acute Code for g Fwd Diagnoses Acute anxiety F41.9 Depression F32.A Homicidal ideations R45.850 Methamphetamine use disorder, moderate F15.20 Cannabis use disorder, severe, dependence F12.20
--- NOTE | 2025-02-24 13:54 | PC.NURSE ---
NEW ORDERS RECEIVED FROM DR. MCCULLOUGH TO GIVE PT ONE DOSE OF DIFLUCAN 150 MG PO NOW, SCHEDULED FOR 1600. PT EDUCATED ON NEW ORDERS AND VERBALIZED UNDERSTANDING.
[2025-02-24 14:00] VITALS: BP 150/93; PULSE 80; RESP 16; TEMP 36.4; O2SAT 99
[2025-02-24] MEDS: fluconazole 100 mg Tablet 150 MG PO (16:02)
[2025-02-24] MEDS: hyDROXYzine 25 mg Capsule 50 MG PO (20:40)
[2025-02-24] MEDS: trazodone 50 mg Tablet PO (20:40)
[2025-02-24 22:00] VITALS: BP 159/94; PULSE 91; RESP 17; TEMP 36.8; O2SAT 97
[2025-02-25 04:19] VITALS: BMI 26.6
[2025-02-25 06:00] VITALS: BP 133/84; PULSE 70; RESP 16; TEMP 36.5; O2SAT 94
[2025-02-25] MEDS: nicotine 4 mg lozenge MUCOUS MEM ×7 (08:08→21:56)
--- NOTE | 2025-02-25 10:18 | PC.NURSE ---
Pt states that she slept really good last night, but she states that she thinks the meds she takes at night make her feel hungover the next morning. She denies any anxiety or depression. Denies hallucinations. No reports of SI/HI. She rates her back pain 4/10 d/t the beds and chairs. She declined any interventions. Pt states that a neighbor helped her children get groceries last night. She was on a bit of an angry rant about having to cont to be here and not be able to take care of her children.
--- NOTE | 2025-02-25 11:38 | P.NPUPN_ITS ---
Subjective NPU 2 Subjective: Patient presented today reporting that things are going well. She reports that she did speak to her job and she still has her job which makes her very happy. We discussed making sure that she is connected with the social work team tomorrow so that we can make sure she does have outpatient services that will allow her to work on the issues that were pressing and led to her going to the mental health services prior to admission. We discussed a plan for discharge tomorrow after appropriate resources are in place. Mental Status Exam 2 MSE Comments: This a well-nourished, well-developed white female in hospital scrubs with limited hygiene/grooming but appropriate eye contact. Absent dentition. No abnormal movements except for mild psychomotor agitation. Mostly cooperative with exam and in mild distress. Speech was slightly increased rate and volume. Mood described as feeling significantly better, affect congruent and less irritable. Thought process organized. Thought content: Patient denied suicidality on admission had endorsed homicidal ideation, there were no delusions reported noted. No auditory or visual hallucinations reported. Stressors include a misunderstanding with a lady, which led to being in the hospital. Additionally, the patient's son got in trouble for missing school, and the school suggested [facility] Counsel[facility] ([facility]) Attention and concentration are mostly intact and memory is appearing mostly reliable but none were formally tested. She is alert and oriented ?3. Insight, judgment and impulse control are impaired. Vitals/I&O/Wt Last Vital Signs Temp 97.7 F 02/25/25 06:00 Pulse 70 02/25/25 06:00 Resp 16 02/25/25 06:00 BP 133/84 02/25/25 06:00 Pulse Ox 94 02/25/25 06:00 O2 Del Method Room Air 02/25/25 06:00 Weight last 48 hrs Weight 68.152 kg Data NPU 02/22/25 15:51 02/22/25 15:51 A&P Assessment and plan (1) Acute anxiety: (2) Depression: (3) Homicidal ideations: (4) Methamphetamine use disorder, moderate: (5) Cannabis use disorder, severe, dependence: Plan This is a 44-year-old white female who presented to the crisis and endorsed homicidal ideation there and was sent to the emergency department for further evaluation with a UDS positive for cannabis and amphetamines denying issues with amphetamines reporting that she is just needing to get connected with services for her and her son. 1. Continue current medications. 2. Encouraged sober living treatment after discharge at the highest level care to which she is willing to commit. 3. Recommend follow-up for mental health services. 4. Encourage individual, group and milieu therapy. 5. Continue every 15 minute checks for safety. 6. Evaluate against the backdrop of a 96-hour hold. PDMP PDMP Reviewed: Not Reviewed Involuntary Hold Information 2 Hold Status: Legal Status: 96 Hour Hold Date/Time Hold Expires: 02/28/25 @1440 Attestations NPU 2 Medical Necessity Statement*: Inpatient hospitalization is medically necessary and the clinically appropriate intervention at this time. We will initiate/monitor medications and make changes as indicated. Likely length of stay 1-2 days. Coding Level of Care Code Acute Code for [facility] Fwd Diagnoses Acute anxiety F41.9 Depression F32.A Homicidal ideations R45.850 Methamphetamine use disorder, moderate F15.20 Cannabis use disorder, severe, dependence F12.20
--- NOTE | 2025-02-25 13:25 | PC.NURSE ---
Pt came to the window wanting to know if she could go ahead and start the Buspar that was recommended to her. Dr. Ragland gave a v/o for Buspar 10mg BID to start tonight. Pt was made aware that Dr. Ragland approved.
[2025-02-25 14:00] VITALS: BP 143/81; PULSE 88; RESP 17; O2SAT 99
[2025-02-25 19:59] VITALS: BP 137/85; PULSE 80; RESP 17; TEMP 36.9; O2SAT 100
[2025-02-25] MEDS: trazodone 50 mg Tablet PO ×2 (20:15→22:06)
[2025-02-25] MEDS: BuSPIRONE 10 mg Tablet PO (20:15)
[2025-02-26 06:00] VITALS: BP 135/75; PULSE 62; RESP 17; TEMP 36.7; O2SAT 98
[2025-02-26] MEDS: nicotine 4 mg lozenge MUCOUS MEM ×4 (07:55→14:41)
[2025-02-26] MEDS: BuSPIRONE 10 mg Tablet PO (08:09)
--- NOTE | 2025-02-26 09:39 | PC.NURSE ---
Pt states that she slept good last night. She was rating her anxiety an 8/10 this morning and she states that she felt like that because she was worried about her kids getting up and going to school. Her depression a 0/10. She states that she feels like the new medication is taking the edge off. She denies SI/HI. No reports of hallucination. Denies pain. States that she had a BM yesterday.
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
[2025-02-26 13:52] VITALS: BP 135/75; PULSE 62; RESP 17; TEMP 36.7; O2SAT 98
== END 2025-02-26 15:46 | disposition home or self-care (01) | DRG 885 ==
LOC: ER 14:39 → NP 17:09
PROVIDERS: Admitting Provider Psychiatry & Neurology Psychiatry; Emergency Provider Emergency Medicine; PCP Family Medicine; Visit Provider Psychiatry & Neurology Psychiatry
DX: F30.9 Manic episode, unspecified (principal); F41.9 Anxiety disorder, unspecified; R45.850 Homicidal ideations; F15.10 Other stimulant abuse, uncomplicated; F12.20 Cannabis dependence, uncomplicated
CPT/HCPCS: 36415; 80053; 80306; 80307; 81001; 84443; 85025; 93005; 97150; 97165; 99285; J9999